=== PATIENT | female | born 1975 | race American Indian/Alaskan Native ===

== ENCOUNTER 2018-11-13 22:41 | Emergency (ER) | payer OTHER ==
--- NOTE | 2018-11-13 23:38 | C.PDOC ---
History Of Present Illness Patient presents to the ED c/o mid epigastric abdominal pain that started tonight at 19:00. Patient reports pain worsens with deep inspiration also states having two episodes of emesis. Patient able to speak in complete sentences. Tapan padilla denies fever, chills, headache, diarrhea, rash, weakness, numbness. Time Seen by Provider: 11/13/18 23:37 Chief Complaint (Nursing): Chest Pain History Per: Patient History/Exam Limitations: no limitations Onset/Duration Of Symptoms: Hrs (19:00) Current Symptoms Are (Timing): Still Present Quality: "Pain" Exacerbating Factors: Deep Breathing Recent travel outside of the [place]: No Additional History Per: Patient Past Medical History Reviewed: Historical Data, Nursing Documentation, Vital Signs Vital Signs: Last Vital Signs Temp 98.9 F 11/13/18 22:52 Pulse 96 H 11/13/18 22:52 Resp 22 11/13/18 22:52 BP Pulse Ox 100 11/13/18 22:52 Primary Care Provider: Non [facility] Provider, - Medical History PMH: No Chronic Diseases Surgical History: No Surg Hx Family History: States: Unknown Family Hx - Social History Hx Alcohol Use: No Hx Substance Use: No - Immunization History Hx Tetanus Toxoid Vaccination: No Hx Influenza Vaccination: No Hx Pneumococcal Vaccination: No Review Of Systems Constitutional: Negative for: Fever, Chills Cardiovascular: Negative for: Chest Pain, Palpitations Respiratory: Negative for: Cough, Shortness of Breath Gastrointestinal: Positive for: Nausea, Vomiting, Abdominal Pain. Negative for: Diarrhea Skin: Negative for: Rash Neurological: Negative for: Weakness, Numbness, Headache Physical Exam - Physical Exam Appears: Non-toxic, No Acute Distress Skin: Warm, Dry Head: Normacephalic Eye(s): bilateral: Normal Inspection Neck: Supple Chest: Symmetrical Cardiovascular: Rhythm Regular Respiratory: No Rales, No Rhonchi, No Wheezing Gastrointestinal/Abdominal: Soft, Tenderness (mild mid epigastric), No Guarding, No Rebound Extremity: Bilateral: Atraumatic, Normal Color And Temperature, Normal ROM Neurological/Psych: Oriented x3, Normal Speech, Normal Cognition Gait: Steady ED Course And Treatment - Laboratory Results Result Diagrams: 11/14/18 00:16 11/14/18 00:16 ECG: Interpreted By Me, Viewed By Me ECG Rhythm: Sinus Rhythm (85), Nonspecific Changes O2 Sat by Pulse Oximetry: 100 (ON RA) Pulse Ox Interpretation: Normal Progress Note: Plan: - EKG. - Labs. - Pepcid 20 mg IVP. - IV fluids. - UA Reevaluation Time: 04:59 Reassessment Condition: Improved Medical Decision Making Medical Decision Making: Upon provider reevaluation patient is feeling better, is medically stable, and requires no further treatment in the ED at this time. Patient will be discharged home with Rx for zithromax, protonix. Counseling was provided and all questions were answered regarding diagnosis and need for follow up with the referred clinic. There is agreement to discharge plan. Return if symptoms persist or worsen. Disposition Counseled Patient/Family Regarding: Studies Performed, Diagnosis, Need For Followup, Rx Given - Disposition Referrals: [facility] [Outside] [facility] [Outside] Disposition: HOME/ ROUTINE Disposition Time: 23:38 Condition: FAIR Additional Instructions: Please return if symptoms recur Prescriptions: Azithromycin [Zithromax Tri-Pablo] 500 mg PO DAILY #3 tablet Pantoprazole Sodium [Protonix] 40 mg PO DAILY #14 ect Instructions: Costochondritis (DC), Acid Reflux (Gastroesophageal Reflux Disease), Adult (DC), Acute Bronchitis, Adult (DC) Forms: [employer] (Yi) - Clinical Impression Clinical Impression: GERD (gastroesophageal reflux disease), Bronchitis, Costochondral chest pain - Scribe Statement The provider has reviewed the documentation as recorded by the Scribe Buster Celaya All medical record entries made by the Scribe were at my direction and personally dictated by me. I have reviewed the chart and agree that the record accurately reflects my personal performance of the history, physical exam, [facility] decision making, and the department course for this patient. I have also personally directed, reviewed, and agree with the discharge instructions and disposition.
[2018-11-13] MEDS ORDERED: Sodium Chloride 0.9% 1,000 ML IV ONE (23:46)
[2018-11-14] MEDS ORDERED: Sodium Chloride 0.9% 1,000 ML ONE (00:06)
[2018-11-14 00:28] LABS: BASO % 0.2 % (0.0-2.0); EOS % 0.2 % (0.0-4.0); HEMOGLOBIN 13.1 g/dL (11.0-16.0); LYMPH # 1.3 K/uL (1.0-4.3); LYMPH % 7.8 % (20.0-40.0); MEAN CELL VOLUME 86.4 fL (81.0-99.0); MEAN CORPUSCULAR HEMOGLOBIN 28.8 pg (27.0-31.0); MEAN CORPUSCULAR HGB CONC 33.4 g/dL (33.0-37.0); MEAN PLATELET VOLUME 8.2 fL (7.2-11.7); MONO # 0.8 K/uL (0.0-0.8); MONO % 4.6 % (0.0-10.0); NEUT % 87.2 % (50.0-75.0); PLATELET COUNT 222 K/uL (130-400); RBC 4.53 Mil/uL (3.80-5.20); RED CELL DISTRIBUTION WIDTH 13.1 % (11.5-14.5); WHITE BLOOD COUNT 17.3 K/uL (4.8-10.8)
[2018-11-14 00:36] LABS: INR 1.1; PROTHROMBIN TIME 12.3 SECONDS (9.7-12.2)
[2018-11-14 00:41] LABS: HCG,QUALITATIVE URINE NEGATIVE (NEGATIVE)
[2018-11-14 00:42] LABS: BLOOD UREA NITROGEN 13 mg/dL (7-17); CALCIUM 9.4 mg/dl (8.6-10.4); GFR NON-AFRICAN AMERICAN > 60; LIPASE 21 U/L (23-300)
[2018-11-14 01:02] VITALS: RESP 18
[2018-11-14 01:11] LABS: ALB/GLOB RATIO 1.2 (1.0-2.1); ALBUMIN 4.4 g/dL (3.5-5.0); ALT/SGPT 14 U/L (9-52); AST/SGOT 35 U/L (14-36)
[2018-11-14 01:12] LABS: URINE BILIRUBIN NEGATIVE (NEGATIVE); URINE CLARITY Hazy (Clear); URINE COLOR YELLOW (YELLOW); URINE GLUCOSE (UA) Normal (Normal)
[2018-11-14 01:13] LABS: SQUAMOUS EPITHIAL 13 /hpf (0-5); URINE BACTERIA RARE (<OCC); URINE BLOOD NEGATIVE (NEGATIVE); URINE LEUKOCYTE ESTERASE NEGATIVE Leu/uL (Negative); URINE PROTEIN NEGATIVE (NEGATIVE)
[2018-11-14 01:14] LABS: URINE CALCIUM OXALATE CRYSTALS OCC /hpf (<OCC)
[2018-11-14 01:41] LABS: LYMPHOCYTE 8 % (20-40); MONOCYTE 5 % (0-10); NEUTROPHIL 87 % (50-75); PLATELET ESTIMATE NORMAL (NORMAL); TOTAL CELLS COUNTED 100
[2018-11-14 05:01] VITALS: O2SAT 100
[2018-11-14 05:03] VITALS: BP 115/76; PULSE 100; TEMP 98.3
--- NOTE | 2018-11-14 11:49 | CT ---
Date of service: 2018-11-14 03:27:57 CTA chest PE protocol Indication: sob, pain Technique: Contiguous axial images were obtained through the chest with intravenous contrast enhancement. Sagittal and coronal reconstructions were generated and reviewed. This CT exam was performed using 1 or more of the following dose reduction techniques: Automated exposure control, adjustment of the MAA and/or kV according to patient size, and/or use of iterative reconstruction technique. IV contrast: 100 mL Visipaque 320 IV Radiation dose (DLP): 373.83 MGy-cm. Comparison: None available Findings: Visualized portions of the inferior thyroid gland appear unremarkable. The mediastinal and hilar vascular structures appear within normal limits. The heart appears within normal limits of size. There is suboptimal opacification of the pulmonary arteries (Main pulmonary artery approximately 150 HU) precluding adequate evaluation for pulmonary embolus. Given this limitation, there are no visible intraluminal filling defects within the central pulmonary arteries to suggest central pulmonary embolism. Left basilar atelectasis/infiltrate. No pleural effusion. No pneumothorax. 2 mm ground-glass nodule, inferior aspect of the right upper lobe (series 4, image 48; coronal image 45). Small hiatal hernia/distal esophageal wall thickening. Limited visualized portions of the upper abdomen: Too small to characterize hepatic hypodensities; statistically likely cysts or hemangiomas. No acute osseous abnormality is detected. Impression: There is suboptimal opacification of the pulmonary arteries (Main pulmonary artery approximately 150 HU) precluding adequate evaluation for pulmonary embolus. Given this limitation, there are no visible intraluminal filling defects within the central pulmonary arteries to suggest central pulmonary embolism. Left basilar atelectasis/infiltrate. 2 mm ground-glass nodule within the inferior aspect of the right upper lobe. According to the 2017 Fleischner criteria, no routine follow-up is recommended. Limited visualized portions of the upper abdomen: Too small to characterize hepatic hypodensities; statistically likely cysts or hemangiomas. Small hiatal hernia/distal esophageal wall thickening. Preliminary impression was provided by [employer]. Study marked for PA review.
--- NOTE | 2018-11-16 03:21 | CARD ---
APPROVED REPORT Date of service: 11/13/2018 EKG Measurement Heart [id number] <Conclusion> Normal sinus rhythm Normal ECG
== END 2018-11-14 05:33 | disposition home or self-care (01) ==
LOC: C.ER 22:41
DX: J40 Bronchitis, not specified as acute or chronic (principal); K21.9 Gastro-esophageal reflux disease without esophagitis; R07.89 Other chest pain
CPT/HCPCS: 71275; 80053; 81001; 83690; 84484; 84703; 85025; 85610; 85730; 96361; 96374; 96375; 99285; J1885; J7030